=== PATIENT | female | born 1985 | race African-American/Black ===

== ENCOUNTER 2021-08-07 10:41 | Emergency (ER) | payer MEDICAID, OTHER, SELFPAY ==
[2021-08-07 11:52] LABS: #Basophils 0.1 thou/uL (0.0-0.2); #Eosinphils 0.1 thou/uL (0.0-0.7); #Lymphocytes 3.1 thou/uL (1.20-3.40); #Monocytes 0.4 thou/uL (0.11-0.59); %Basophils 0.6 % (0.0-1.0); %Eosinophils 0.7 % (0.0-10.0); %Lymphocytes 31.8 % (21.0-51.0); %Monocytes 4.5 % (0.0-10.0); %Neutrophils 62.4 % (42.0-75.0); Hemoglobin 13.1 g/dL (12.0-16.0); Mean Corpuscular HGB CONC 32.6 g/dL (32.0-36.0); Mean Corpuscular Hemoglobin 27.8 pg (27.0-31.0); Mean Corpuscular Volume 85.2 fL (78.0-98.0); Mean Platelet Volume 7.2 fL (7.4-10.4); Platelet Count 282 thou/uL (130-400); RBC Distribution Width 13.2 % (11.5-14.5); Red Blood Cell (RBC) Count 4.72 mill/uL (4.20-5.40); White Blood Cell (WBC) Count 9.7 thou/uL (4.8-10.8)
[2021-08-07 12:50] LABS: ALT (SGPT) 11 U/L (8-55); AST (SGOT) 15 U/L (5-34); Albumin 4.3 g/dL (3.5-5.0); Alkaline Phosphatase 70 U/L (40-110); Anion Gap 18 mmol/L (10-20); BUN (Urea Nitrogen) 9 mg/dL (7.0-18.7); Bilirubin, Total 0.3 mg/dL (0.2-1.2); Calc. Creatinine Clearance 0 mL/min (70-130); Calcium 10.2 mg/dL (7.8-10.44); Carbon Dioxide 17 mmol/L (22-29); Chloride 107 mmol/L (98-107); Globulin 3.9 g/dL (2.4-3.5); Glucose 80 mg/dL (70-105); Lipase 45 U/L (8-78); Potassium 3.8 mmol/L (3.5-5.1); Protein, Total 8.2 g/dL (6.0-8.3); Sodium 138 mmol/L (136-145)
[2021-08-07] MEDS ORDERED: Acetaminophen 325 MG TAB ONE (15:10)
[2021-08-07] MEDS ORDERED: Dexamethasone 4 MG TAB ONE (15:29)
== END 2021-08-07 16:23 | disposition home or self-care (01) ==
LOC: ERS 10:41
DX: M48.02 Spinal stenosis, cervical region (principal); H50.9 Unspecified strabismus; I10 Essential (primary) hypertension; G80.9 Cerebral palsy, unspecified; Z79.899 Other long term (current) drug therapy
CPT/HCPCS: 71045; 72125; 80053; 83690; 84484; 85025; 93005; 94760; J8540

== ENCOUNTER 2021-11-27 14:00 | Outpatient (CLI) | payer OTHER | END 2021-11-27 23:59 | disposition home or self-care (01) | LOC: SCSMRI 14:00 | PROVIDERS: ATTEND Physician Assistant | DX: M48.02 Spinal stenosis, cervical region (principal); M50.223 Other cervical disc displacement at C6-C7 level; M47.812 Spondylosis without myelopathy or radiculopathy, cervical region | CPT/HCPCS: 72141 ==

== ENCOUNTER 2023-01-16 11:58 | Emergency (ER) | payer OTHER ==
[2023-01-16] MEDS ORDERED: Dexamethasone 10 MG/ML VIAL ONE (14:15)
== END 2023-01-16 15:28 | disposition home or self-care (01) ==
LOC: ERS 11:58
DX: J06.9 Acute upper respiratory infection, unspecified (principal); R91.1 Solitary pulmonary nodule; I10 Essential (primary) hypertension; G80.8 Other cerebral palsy; Z20.822 Contact with and (suspected) exposure to COVID-19; Z79.899 Other long term (current) drug therapy
CPT/HCPCS: 71045; 87635; J1100

== ENCOUNTER 2023-07-24 16:00 | Outpatient (CLI) | payer OTHER | END 2023-07-24 16:01 | disposition home or self-care (01) | LOC: SLEEPLAB 16:00 | PROVIDERS: ATTEND Family Medicine | DX: G47.33 Obstructive sleep apnea (adult) (pediatric) (principal); R53.83 Other fatigue; R51.9 Headache, unspecified; E66.9 Obesity, unspecified; R06.83 Snoring; I10 Essential (primary) hypertension; G47.10 Hypersomnia, unspecified; G80.9 Cerebral palsy, unspecified; G47.00 Insomnia, unspecified; Z68.32 Body mass index [BMI] 32.0-32.9, adult | CPT/HCPCS: 95810 ==

== ENCOUNTER 2023-08-29 16:00 | Outpatient (CLI) | payer OTHER | END 2023-08-29 16:01 | disposition home or self-care (01) | LOC: SLEEPLAB 16:00 | PROVIDERS: ATTEND Family Medicine | DX: G47.33 Obstructive sleep apnea (adult) (pediatric) (principal); R06.83 Snoring; I10 Essential (primary) hypertension; R53.83 Other fatigue; R09.89 Other specified symptoms and signs involving the circulatory and respiratory systems; R51.9 Headache, unspecified; E66.9 Obesity, unspecified; Z68.32 Body mass index [BMI] 32.0-32.9, adult | CPT/HCPCS: 95811 ==